=== PATIENT | male | born 1950 | race Caucasian/White ===

== ENCOUNTER → 2020-08-24 | Outpatient (CLI) | payer MEDICARE, OTHER ==
--- NOTE | 2020-08-24 17:31 | KCIC ---
EXAM: Lumbar spine, 5 views. HISTORY: Pain. COMPARISON: None. FINDINGS: 5 views lumbar spine are obtained. There is grade 1 anterolisthesis of L4 on L5. There is s light retrolisthesis of L5 on S1. There is multilevel endplate remodeling. There is facet arthropathy at the mid lower lumbar levels. IMPRESSION: 1. Multilevel degenerative change, primarily at the lower lumbar levels. 2. Grade 1 anterolisthesis of L4 and L5 and slight retrolisthesis of L5 on S1. 3. No acute osseous finding. Electronically signed by: Vickie Geronimo MD (08/24/2020 5:29 PM) [id number]
== END ==
LOC: KCIC 10:20
PROVIDERS: ATTEND Nurse Practitioner Family
DX: M47.816 Spondylosis without myelopathy or radiculopathy, lumbar region (principal); M43.16 Spondylolisthesis, lumbar region; M53.87 Other specified dorsopathies, lumbosacral region; M12.88 Other specific arthropathies, not elsewhere classified, other specified site
CPT/HCPCS: 72110

== ENCOUNTER → 2020-09-08 | Outpatient (CLI) | payer MEDICARE, OTHER ==
--- NOTE | 2020-09-08 15:52 | KCIC ---
EXAMINATION: Magnetic resonance imaging (MRI) of the lumbar spine without contrast 09/08/2020 2:21 PM HISTORY: Low back pain. TECHNIQUE: Multiplanar multi-weighted MRI of the lumbar spine was performed without intravenous contr ast using the standard lumbar spine protocol. Contrast information: None administered. COMPARISON: None available. FINDINGS: There is minimal retrolisthesis of L1 on L2 and L2 on L3. Minimal anterolisthesis of L4 on L5 measuri ng 3 mm. Vertebral body heights are maintained. Modic type I endplate degenerative changes are identi fied at L4-L5 with endplate edema. Mild degenerative changes are identified anteriorly at the endplat es of L3-L4. There is mild disc height loss at L1-L2 and L2-L3. There is mild disc height loss at L4- L5. Disc desiccation is identified throughout the lumbar spine. Minimal disc edema identified at L4-L 5 with vacuum disc phenomena. Conus medullaris terminates at L1. Distal spinal cord signal intensity is normal in all sequences. There is no compressive epidural hematoma. Abdominal aorta is normal in c aliber. No suspicious retrocardiac abnormalities identified. Visualized portions of the sacrum appear intact. L1-L2: Mild disc bulge. Mild facet arthropathy. No neuroforaminal or spinal canal stenosis. L2-L3: There is a circumferential disc bulge with right foraminal disc protrusion. Mild facet arthrop athy. Moderate right and mild left neuroforaminal stenosis. Mild spinal canal stenosis. L3-L4: Disc is normal in configuration. Mild facet arthropathy. No neuroforaminal or spinal canal maddy nosis. L4-L5: There is a moderate circumferential disc bulge with central disc extrusion. There is moderate facet arthropathy ligamentum flavum infolding. Moderate to severe spinal canal stenosis with redundan cy of the nerve roots below this level. There is bilateral lateral recess stenosis. Moderate bilatera l neuroforaminal stenosis. L5-S1: There is a disc bulge with right central disc protrusion. Severe right and moderate left facet arthropathy. Moderate right and mild left neuroforaminal stenosis. No significant spinal canal steno sis. IMPRESSION: Mild to moderate degenerative changes of the lumbar spine, as described in detail above. Findings are most significant at L4-L5 with a central disc extrusion and facet arthropathy resulting in moderate to severe spinal canal stenosis as well as bilateral lateral recess stenosis. Electronically signed by: Alexandra Jasso MD (09/08/2020 3:50 PM) [id number]
== END ==
LOC: KCIC MRI 14:11
PROVIDERS: ATTEND Nurse Practitioner Family
DX: M47.816 Spondylosis without myelopathy or radiculopathy, lumbar region (principal); M48.061 Spinal stenosis, lumbar region without neurogenic claudication
CPT/HCPCS: 72148